=== PATIENT | male | born 1935 | race Caucasian/White ===

== ENCOUNTER 2021-01-07 22:19 | Emergency (ER) | payer MEDICARE, OTHER, SELFPAY ==
[2021-01-07 22:25] VITALS: BP 150/59; PULSE 67; RESP 18; TEMP 36.4; O2SAT 97; BMI 29.8
[2021-01-07 22:30] VITALS: BP 145/55; PULSE 61; O2SAT 95
--- NOTE | 2021-01-07 22:40 | CT_ITS ---
PROCEDURE INFORMATION: Exam: CT Head Without Contrast Exam date and time: 01/07/2021 10:40 PM Age: 85 years old Clinical indication: Injury or trauma; Fall; Blunt trauma (contusions or hematomas); Without loss of consciousness; Injury date: 01/07/2021; Injury details: Fell after blood sugar drop small laceration left top of head TECHNIQUE: Imaging protocol: Computed tomography of the head without contrast. Radiation optimization: All CT scans at this facility use at least one of these dose optimization techniques: automated exposure control; mA and/or kV adjustment per patient size (includes targeted exams where dose is matched to clinical indication); or iterative reconstruction. COMPARISON: No relevant prior studies available. FINDINGS: Brain: Age appropriate atrophy and small vessel ischemic change. No evidence of intracranial hemorrhage, mass effect, midline shift or extra-axial fluid collections. Midline structures are normal. Dennis-white matter differentiation is normal. Cerebral ventricles: No ventriculomegaly. Paranasal sinuses: Visualized sinuses are unremarkable. No fluid levels. Mastoid air cells: Visualized mastoid air cells are well aerated. Orbital cavity: The patient has had bilateral lens replacement surgery. Vasculature: Carotid and vertebral artery atherosclerotic calcification. Bones/joints: Unremarkable. No acute fracture. Soft tissues: Unremarkable. IMPRESSION: No acute intracranial injury.
--- NOTE | 2021-01-07 22:40 | XR_ITS ---
PROCEDURE INFORMATION: Exam: XR Chest Exam date and time: 01/07/2021 10:40 PM Age: 85 years old Clinical indication: Injury or trauma; Fall; Blunt trauma (contusions or hematomas); Injury date: 01/07/2021; Injury details: Fell trauma protocols; Prior surgery; Surgery date: 6+ months; Surgery type: Open heart TECHNIQUE: Imaging protocol: XR of the chest. Views: 4 or more views. COMPARISON: CT CERVICAL SPINE WO CON 01/07/2021 11:08 PM FINDINGS: Lungs: Unremarkable. No consolidation. Pleural spaces: Unremarkable. No pleural effusion. No pneumothorax. Heart/Mediastinum: There are surgical changes in the mediastinum. Cardiac silhouette is at the upper limit of normal. There is atherosclerotic calcification in the aortic arch. Bones/joints: Unremarkable. IMPRESSION: No acute cardiopulmonary abnormality. Borderline cardiomegaly.
--- NOTE | 2021-01-07 22:40 | XR_ITS ---
PROCEDURE INFORMATION: Exam: XR Pelvis Exam date and time: 01/07/2021 10:40 PM Age: 85 years old Clinical indication: Injury or trauma; Fall; Blunt trauma (contusions or hematomas); Bilateral; Pelvic region; Injury date: 01/07/2021; Injury details: Fell trauma protocol TECHNIQUE: Imaging protocol: XR pelvis. Views: 1 or 2 view. COMPARISON: No relevant prior studies available. FINDINGS: Bones/joints: Unremarkable. No acute fracture. Soft tissues: Unremarkable. IMPRESSION: No acute findings.
--- NOTE | 2021-01-07 22:40 | CT_ITS ---
PROCEDURE INFORMATION: Exam: CT Cervical Spine Without Contrast Exam date and time: 01/07/2021 10:40 PM Age: 85 years old Clinical indication: Injury or trauma; Fall; Blunt trauma; Injury date: 01/07/2021; Injury details: Fell small laceration left top of head neck pain TECHNIQUE: Imaging protocol: Computed tomography images of the cervical spine without contrast. Radiation optimization: All CT scans at this facility use at least one of these dose optimization techniques: automated exposure control; mA and/or kV adjustment per patient size (includes targeted exams where dose is matched to clinical indication); or iterative reconstruction. COMPARISON: CT HEAD/BRAIN WO CON 01/07/2021 11:03 PM FINDINGS: Vertebrae: There are moderate degenerative changes present. Normal alignment. No acute fractures. Soft tissues: Unremarkable. Lungs: Lung apices are normal. IMPRESSION: No acute injury.
--- NOTE | 2021-01-07 22:49 | HMH.EDGENADL ---
ED Disposition Clinical Impression: Hypoglycemia due to insulin Head contusion Qualifiers: Encounter type: initial encounter Contusion of head detail: scalp Qualified Code(s): S00.03XA - Contusion of scalp, initial encounter Disposition: Home, Self-Care Condition on Discharge: Good Instructions: DI for Hypoglycemia Additional Instructions: call pcp in am for follow up Referrals: Phan Thompson [Primary Care Provider] - - Critical Care Critical Care Time: No Attestation: On 01/07/21, the high probability of a clinically significant, sudden or life threatening deterioration of the following system(s) required my full and direct attention, intervention and personal management. The time I documented below is in addition to time spent performing reported procedures but includes the following listed in this critical care notation. Medical Decision Making - Medical Records Medical records reviewed: Yes: I reviewed the patient's medical records. - Jorge Inquiry Pt receiving controlled substance: No Vital Signs: 01/07/21 22:25 01/07/21 22:30 01/07/21 23:52 Temperature 97.5 F L Temperature Source Oral Pulse Rate 61 56 L Pulse Rate [Right] 67 Respiratory Rate 18 Blood Pressure 145/55 H 142/62 H Blood Pressure [Right Arm] 150/59 H Blood Pressure Mean [Right Arm] 89 Blood Pressure Source [Right Arm] Automatic Cuff Blood Pressure Position [Right Arm] Supine 02 Sat by Pulse Oximetry 97 95 99 Oxygen Delivery Method Room Air - Lab Data Lab results reviewed: Yes: I reviewed the patient's lab results. Lab Results 01/07/21 23:52: WBC 2.5 L, RBC 4.29 L, Hgb 13.0 L, Hct 38.9 L, MCV 90.6, MCH 30.2, MCHC 33.4, RDW 18.4 H, Plt Count 62 L, MPV 9.7, Neut % (Auto) 58.5, Lymph % (Auto) 32.9, [place] % (Auto) 4.2, Eos % (Auto) 1.9, Baso % (Auto) 2.5 H, Neut # (Auto) 1.5 L, Lymph # (Auto) 0.8, [place] # (Auto) 0.1, Eos # (Auto) 0.1, Baso # (Auto) 0.1, ESR 19 01/07/21 23:52: Sodium 142, Potassium 3.9, Chloride 103, Carbon Dioxide 32 H, Anion Gap 10.9, BUN 19, Creatinine 1.10, Estimated Creat Clear 69, Estimated GFR 64, Est GFR ( Amer) 77, Glucose 82, Calcium 8.5, Total Bilirubin 0.7, AST 21, ALT 13, Alkaline Phosphatase 69, C-Reactive Protein 0.8, Total Protein 6.5, Albumin 3.8, Globulin 2.7, Albumin/Globulin Ratio 1.4, Procalcitonin 0.111 Result diagrams: 01/07/21 23:52 01/07/21 23:52 Orders (Tests/Meds): ED MEDICATIONS Generic Name Dose Route Start Last Admin Trade Name Freq PRN Reason Stop Dose Admin Sodium Chloride 1,000 mls @ 999 mls/hr 01/07/21 22:45 01/07/21 23:26 Sod Chlor 0.9% 1000ml Bag IV 01/07/21 23:45 999 mls/hr .Q1H1M EDIE Administration - Radiology Data #1 Image(s): Chest, Pelvis Image Reviewed: Yes I have reviewed radiologist's interpretation Preliminary Findings: No Fracture Seen - CT Data CT Scan: Head, C-Spine Time Received: 01:[address] Reviewed: Yes: I have viewed the radiologist's interpretation Preliminary Findings: No Fracture Seen Medical Decision Narrative: iddm with acute hypoglycemic episode and stable exam and labs and xrays General Adult HPI - General Chief complaint: Hyper/Hypoglycemia Stated complaint: low BS Time Seen by Provider: 01/07/21 22:35 Mode of Arrival: EMS Source of Information: Patient, EMS, Medical Record Limitations: No Limitations Description of Symptoms (Recalled from ER Triage Doc. by RN): Family reports they heard a loud bang and then found pt on the floor and non-verbal, family checked FSBS and it read 60, EMS arrived and checked FSBS after IV established and found it to be in the 30's. EMS gave 1 AMP of D50 and pt started waking up. On Arrival pt had shallow laceration to left side of head with no bleeding. Pt is AA&O x 3 on arrival. PERRL 3mm. pt moves all ext. Arrival FSBS 197. - History of Present Illness HPI narrative: acute altered mental status - hit head and had dec glu - responded to glucose - uses insu
[2021-01-07 23:52] VITALS: BP 142/62; PULSE 56; O2SAT 99
[2021-01-07 23:58] LABS: Basophils # 0.1 K/mm3 (0-0.2); Basophils % 2.5 % (0.1-2.0); Eosinophils # 0.1 K/mm3 (0.0-0.4); Eosinophils % 1.9 % (0.1-12.0); Hematocrit 38.9 % (42.0-52.0); Lymphocytes # 0.8 K/mm3 (0.7-4.5); Lymphocytes % 32.9 % (10-50); Mean Corpuscular HGB Conc 33.4 g/dL (31.8-35.4); Mean Corpuscular Hemoglobin 30.2 pg (27.0-31.2); Mean Corpuscular Volume 90.6 fl (80-94); Mean Platelet Volume 9.7 fl (7.4-10.4); Monocytes # 0.1 K/mm3 (0.1-1.0); Monocytes % 4.2 % (1.7-9.3); Neutrophils # 1.5 K/mm3 (1.8-7.8); Neutrophils % 58.5 % (37.0-80.0); Platelet Count 62 K/mm3 (142-424); Red Blood Count 4.29 M/mm3 (4.60-6.20); Red Cell Distribution Width 18.4 % (11.5-17.5); White Blood Count 2.5 K/mm3 (4.8-10.8)
[2021-01-08 00:08] LABS: Alanine Aminotransferase 13 U/L (12-78); Albumin Level 3.8 g/dl (3.5-5.0); Albumin/Globulin Ratio 1.4 (1.1-1.8); Alkaline Phosphatase 69 U/L (38-126); Anion Gap 10.9 mEq/L (5-15); Aspartate Amino Transferase 21 U/L (17-59); Bilirubin,Total 0.7 mg/dl (0.2-1.3); Blood Urea Nitrogen 19 mg/dl (9-20); Calcium 8.5 mg/dl (8.4-10.2); Carbon Dioxide 32 mmol/L (22.0-30.0); Chloride 103 mmol/L (98-107); Creatinine Clearance Estimated 69 mL/min (50-200); Estimated Glomerular Filt Rate 64 ml/min (>60); GFR (African American) 77 ML/MIN (>60); Globulin 2.7 g/dL (1.3-3.2); Glucose 82 mg/dl (74-100); Potassium 3.9 mmoL/L (3.5-5.1); Sodium 142 mmol/L (136-145); Total Protein,Serum 6.5 g/dl (6.3-8.2)
[2021-01-08 00:13] LABS: C-Reactive Protein 0.8 mg/L (0-4)
[2021-01-08 00:21] LABS: Erythrocyte Sedimentation Rate 19 mm/hr (0-20)
[2021-01-08 00:27] LABS: Procalcitonin 0.111 ng/mL (0.0-2.0)
[2021-01-08 01:10] VITALS: BP 141/60; PULSE 56; RESP 18; TEMP 36.4; O2SAT 97
== END 2021-01-08 01:12 | disposition home or self-care (01) ==
PROVIDERS: Emergency Provider Emergency Medicine; PCP Internal Medicine
DX: E11.649 Type 2 diabetes mellitus with hypoglycemia without coma (principal); S00.03XA Contusion of scalp, initial encounter; W01.0XXA Fall on same level from slipping, tripping and stumbling without subsequent striking against object, initial encounter; Y92.019 Unspecified place in single-family (private) house as the place of occurrence of the external cause
CPT/HCPCS: 70450; 71045; 72125; 72170; 80053; 84145; 85025; 85651; 86140; 96365; 99282

== ENCOUNTER 2021-01-14 14:01 | Inpatient (IN) | payer MEDICARE, OTHER, SELFPAY ==
[2021-01-14 14:03] VITALS: BP 138/55; PULSE 77; RESP 22; TEMP 37.3; O2SAT 92; BMI 24.4
--- NOTE | 2021-01-14 14:40 | XR_ITS ---
PROCEDURE INFORMATION: Exam: XR Chest Exam date and time: 01/14/2021 2:40 PM Age: 85 years old Clinical indication: Fever; Additional info: Covid exposure, fever, disorientation TECHNIQUE: Imaging protocol: XR of the chest. Views: 1 view. COMPARISON: CR XR CHEST AP 01/07/2021 11:17 PM FINDINGS: Tubes, catheters and devices: There are sternal wires consistent with previous sternotomy incision. Lungs: Atelectasis and/or early infiltrative changes noted within both lung bases. Pleural spaces: There is no evidence of pneumothorax. Heart/Mediastinum: The heart demonstrates mild diffuse enlargement. Vasculature: The vasculature demonstrates diffuse mild atherosclerotic calcification. Bones/joints: The thoracic spine demonstrates mild degenerative changes at multiple levels. Other findings: The patient's chin overlies the lung apices. IMPRESSION: 1. The heart demonstrates mild diffuse enlargement. 2. Atelectasis and/or early infiltrative changes noted within both lung bases.
[2021-01-14 14:46] LABS: Coronavirus 19, PCR Not Detected (NotDetected); Influenza A, PCR Not Detected (NotDetected); Influenza B, PCR Not Detected (NotDetected)
[2021-01-14 15:01] LABS: Basophils # 0.4 K/mm3 (0-0.2); Basophils % 4.9 % (0.1-2.0); Eosinophils # 0.1 K/mm3 (0.0-0.4); Eosinophils % 0.7 % (0.1-12.0); Hematocrit 34.5 % (42.0-52.0); Hemoglobin 11.6 g/dL (14.1-18.0); Lymphocytes # 1.3 K/mm3 (0.7-4.5); Lymphocytes % 15.6 % (10-50); Mean Corpuscular HGB Conc 33.7 g/dL (31.8-35.4); Mean Corpuscular Hemoglobin 29.7 pg (27.0-31.2); Mean Corpuscular Volume 88.2 fl (80-94); Mean Platelet Volume 10.6 fl (7.4-10.4); Monocytes # 1.6 K/mm3 (0.1-1.0); Monocytes % 19.9 % (1.7-9.3); Neutrophils # 5.1 K/mm3 (1.8-7.8); Neutrophils % 63.8 % (37.0-80.0); Platelet Count 66 K/mm3 (142-424); Red Blood Count 3.91 M/mm3 (4.60-6.20); Red Cell Distribution Width 18.6 % (11.5-17.5)
[2021-01-14 15:07] LABS: Alanine Aminotransferase 29 U/L (12-78); Albumin Level 3.6 g/dl (3.5-5.0); Albumin/Globulin Ratio 1.2 (1.1-1.8); Alkaline Phosphatase 73 U/L (38-126); Anion Gap 15.7 mEq/L (5-15); Aspartate Amino Transferase 32 U/L (17-59); Bilirubin,Total 1.3 mg/dl (0.2-1.3); Blood Urea Nitrogen 42 mg/dl (9-20); Calcium 8.8 mg/dl (8.4-10.2); Carbon Dioxide 27 mmol/L (22.0-30.0); Chloride 94 mmol/L (98-107); Creatinine Clearance Estimated 42 mL/min (50-200); Estimated Glomerular Filt Rate 44 ml/min (>60); GFR (African American) 54 ML/MIN (>60); Globulin 2.9 g/dL (1.3-3.2); Glucose 209 mg/dl (74-100); Potassium 3.7 mmoL/L (3.5-5.1); Sodium 133 mmol/L (136-145); Total Protein,Serum 6.5 g/dl (6.3-8.2)
[2021-01-14 15:09] LABS: Lactic Acid 3.2 mmol/L (0.7-2.1)
[2021-01-14 15:10] LABS: Microscopic, Urine URINE MICROSCOPIC (MICROSCOPIC)
[2021-01-14 15:14] LABS: Appearance,Urine CLEAR (Clear); Bilirubin,Urine Negative (Negative); Blood, Urine 1+ (Negative); Color,Urine YELLOW (Yellow); Glucose,Urine (UA) 1+ (Negative); Ketones,Urine Negative (Negative); Leukocyte Esterase,Urine Negative (Negative); Nitrate,Urine Negative (Negative); PH,Urine 5.5 (5.0-8.5); Protein,Urine TRACE (Negative); Specific Gravity, Urine >= 1.030 (1.005-1.030)
[2021-01-14 15:27] LABS: Squamous Epithelial Cell,Urine Occasional #/hpf (0-5)
[2021-01-14 15:28] LABS: Amorphous Sediment,Urine Trace /lpf
--- NOTE | 2021-01-14 16:47 | HMH.EDGENADL ---
ED Disposition Clinical Impression: Elevated troponin, Dehydration Community acquired pneumonia Qualifiers: Laterality: unspecified laterality Qualified Code(s): J18.9 - Pneumonia, unspecified organism Disposition: Admitted as Observation Condition on Discharge: Fair Referrals: Phan Thompson [Primary Care Provider] - Forms: Transfer Record - ED - Critical Care Critical Care Time: No Attestation: On 01/14/21, the high probability of a clinically significant, sudden or life threatening deterioration of the following system(s) required my full and direct attention, intervention and personal management. The time I documented below is in addition to time spent performing reported procedures but includes the following listed in this critical care notation. Medical Decision Making - Jorge Inquiry Pt receiving controlled substance: No Vital Signs: 01/14/21 14:03 Temperature 99.1 F Temperature Source Oral Pulse Rate [Right Radial] 77 Respiratory Rate 22 Blood Pressure [Right Arm] 138/55 L Blood Pressure Mean [Right Arm] 82 Blood Pressure Source [Right Arm] Automatic Cuff Blood Pressure Position [Right Arm] Sitting 02 Sat by Pulse Oximetry 92 L Oxygen Delivery Method Room Air - Lab Data Lab Results 01/14/21 14:15: SARS-CoV-2 (PCR) Not detected, Influenza A Untype (PCR) Not detected, Influenza Type B (PCR) Not detected 01/14/21 14:45: WBC 8.0, RBC 3.91 L, Hgb 11.6 L, Hct 34.5 L, MCV 88.2, MCH 29.7, MCHC 33.7, RDW 18.6 H, Plt Count 66 L, MPV 10.6 H, Neut % (Auto) 63.8, Lymph % (Auto) 15.6, [place] % (Auto) 19.9 H, Eos % (Auto) 0.7, Baso % (Auto) 4.9 H, Neut # (Auto) 5.1, Lymph # (Auto) 1.3, [place] # (Auto) 1.6 H, Eos # (Auto) 0.1, Baso # (Auto) 0.4 H 01/14/21 14:45: Sodium 133 L, Potassium 3.7, Chloride 94 L, Carbon Dioxide 27, Anion Gap 15.7 H, BUN 42 H, Creatinine 1.50 H, Estimated Creat Clear 42, Estimated GFR 44 L, Est GFR ( Amer) 54 L, Glucose 209 H, Calcium 8.8, Total Bilirubin 1.3, AST 32, ALT 29, Alkaline Phosphatase 73, Total Protein 6.5, Albumin 3.6, Globulin 2.9, Albumin/Globulin Ratio 1.2 01/14/21 14:45: Lactate 3.2 H 01/14/21 14:45: NT-Pro-B Natriuret Pep 4880 H 01/14/21 14:45: Lipase 18 L 01/14/21 15:04: Urine Color Yellow, Urine Appearance Clear, Urine pH 5.5, Ur Specific [place] >= 1.030, Urine Protein Trace, Urine Glucose (UA) 1+, Urine Ketones Negative, Urine Blood 1+, Urine Nitrate Negative, Urine Bilirubin Negative, Urine Urobilinogen 1.0, Ur Leukocyte Esterase Negative, Urine RBC 3-5, Urine WBC None, Ur Squamous Epith Cells Occasional, Amorphous Sediment Trace, Urine Bacteria None 01/14/21 17:50: Troponin I 0.22 H 01/14/21 17:57: POC Glucose 220 H Result diagrams: 01/14/21 14:45 01/14/21 14:45 Orders (Tests/Meds): ED MEDICATIONS Generic Name Dose Route Start Last Admin Trade Name Freq PRN Reason Stop Dose Admin Sodium Chloride 1,000 mls @ 100 mls/hr 01/14/21 17:45 01/14/21 18:03 Sod Chlor 0.9% 1000ml Bag IV 02/13/21 17:44 100 mls/hr .Q10H EDIE Administration Discontinued Medications Generic Name Dose Route Start Last Admin Trade Name Freq PRN Reason Stop Dose Admin Aspirin 324 mg 01/14/21 18:56 Aspirin 81mg Chewable Tablet PO 01/14/21 18:57 ONCE ONE Iopamidol 75 ml 01/14/21 19:26 01/14/21 19:27 Iopamidol-370 (76%);100ml Bottle IV 01/14/21 19:27 75 ml ONCE ONE Administration Ondansetron HCl 4 mg 01/14/21 17:32 01/14/21 18:03 Ondansetron 4mg/2ml Vial IV 01/14/21 17:33 4 mg ONCE ONE Administration Sodium Chloride 10 ml 01/14/21 19:26 01/14/21 19:27 Sodium Chloride 0.9% 10ml Syr (Rad Only) IV 01/14/21 19:27 10 ml ONCE ONE Administration ORDERS Category Date Time Status Lactic Acid Follow Up (RFLX 1) Stat Lab 01/14/21 18:58 Ordered Troponin I Q3H Lab 01/14/21 20:15 Received Troponin I Q3H Lab 01/14/21 23:45 Ordered Blood Culture Stat Micro 01/14/21 14:45 Ordered - Radiology Data #1 Image(s): Chest
--- NOTE | 2021-01-14 17:30 | CT_ITS ---
PROCEDURE INFORMATION: Exam: CT Abdomen And Pelvis With Contrast Exam date and time: 01/14/2021 5:30 PM Age: 85 years old Clinical indication: Nausea and vomiting and other: Diarrhea; Patient HX: Nausea, vomiting, diarrhea for 48 hours with generalized abdominal pain. TECHNIQUE: Imaging protocol: Computed tomography of the abdomen and pelvis with contrast. Radiation optimization: All CT scans at this facility use at least one of these dose optimization techniques: automated exposure control; mA and/or kV adjustment per patient size (includes targeted exams where dose is matched to clinical indication); or iterative reconstruction. Contrast material: ISOVUE; Contrast volume: 75 ml; Contrast route: IV; COMPARISON: CR XR PELVIS 1-2V 01/07/2021 11:15 PM FINDINGS: Heart: The heart demonstrates mild diffuse enlargement. Liver: Normal. No mass. Gallbladder and bile ducts: Cholelithiasis without evidence of cholecystitis. Pancreas: Normal. No ductal dilation. Spleen: The spleen demonstrates punctate calcifications, consistent with remote granulomatous organism exposure. Adrenal glands: Mild thickening of both adrenal glands. Kidneys and ureters: Nonspecific low-density foci of the kidneys statistically favor benign cysts, no further follow-up needed, as large as 3.7 cm on the left. Punctate nonobstructing calcifications present within both kidneys, greater on the right. Stomach and bowel: A large amount of stool is noted throughout the colon. Mild thickening of the garcia of the stomach consistent with mild gastritis. Appendix: Appendix is not well seen. Intraperitoneal space: Normal. No significant fluid collection. Vasculature: The vasculature demonstrates diffuse mild atherosclerotic calcification. Lymph nodes: Unremarkable. No enlarged lymph nodes. Urinary bladder: Holden catheter, air and balloon present within the bladder. Reproductive: The prostate demonstrates mild nonspecific enlargement. The seminal vesicles are normal. Bones/joints: The lumbar spine demonstrates mild degenerative changes at multiple levels. Soft tissues: Soft tissues are normal. IMPRESSION: 1. The heart demonstrates mild diffuse enlargement. 2. A large amount of stool is noted throughout the colon. 3. Mild thickening of the garcia of the stomach consistent with mild gastritis. 4. Cholelithiasis without evidence of cholecystitis. 5. Punctate nonobstructing calcifications present within both kidneys, greater on the right.
--- NOTE | 2021-01-14 17:31 | ECG_ITS ---
APPROVED REPORT Exam: Resting ECG HR:78 bpm ECG Measurements Heart Rate 78 AXES VT 176 P QRSd 98 QRS 48 QT 300 T -84 QTc 342 Conclusion Sinus rhythm with frequent premature ventricular complexes and premature atrial complexes Incomplete right bundle branch block ST & T wave abnormality, consider inferior ischemia ST & T wave abnormality, consider anterolateral ischemia Abnormal ECG Electronically signed by : Maynor Reynolds MD 01/16/2021 12:09:52
[2021-01-14 18:05] LABS: POC Glucose,Bedside 220 (70-110)
[2021-01-14 18:37] LABS: Troponin I 0.22 ng/ml (0.00-0.034)
[2021-01-14 18:58] LABS: Reflex Lactic Add Lactic Reflex
[2021-01-14 19:24] LABS: Lipase 18 U/L (23-300)
[2021-01-14 19:33] LABS: NT Pro Brain Natriuretic Pep. 4880 pg/mL (0-450)
[2021-01-14 20:00] VITALS: BP 127/50; PULSE 79; RESP 20; O2SAT 93
[2021-01-14 21:01] VITALS: BP 125/31; PULSE 75; O2SAT 95
[2021-01-14 21:14] LABS: Troponin I 0.27 ng/ml (0.00-0.034)
--- NOTE | 2021-01-14 21:15 | PC.NURSE ---
Seth notified of critical lab Trop 0.27
[2021-01-14 21:30] LABS: Lactic Acid Follow Up (RFLX 1) 3.3 mmol/L (0.7-2.1)
[2021-01-14 22:00] VITALS: BP 125/99; PULSE 67; O2SAT 96
--- NOTE | 2021-01-14 22:07 | PC.NURSE ---
EXPLAINED TO PATIENT THAT HE WAS GOING TO BE ADMITTED. INFORMED HIM AND HIS VISITOR THAT WE CURRENTLY DON'T HAVE ANY BEDS AND THAT HE WOULD BOARD IN OUR ED UNTIL A BED BECOMES AVAILABLE IN THE AM. INFORMED HIM THAT ONCE THE ED CLEARED OUT AND MORE COMFORTABLE STRETCHERS BECOME AVAILABLE WE WOULD MOVE HIM INTO ONE. PATIENT AND VISITOR VERBALIZED UNDERSTANDING.
[2021-01-14 23:09] LABS: Reflex Lactic (2 hrs) Add Lactic Reflex
--- NOTE | 2021-01-14 23:16 | PC.NURSE ---
Addendum entered by Vikas Rankin RN 01/15/21 00:37: Pt had also removed his IV. Will attempt new iv access. Original Note: Holden removed to prevent injury d/t pt continuously trying to remove it himself.
[2021-01-14 23:30] VITALS: BP 127/40; PULSE 102; O2SAT 92
[2021-01-15] VITALS (7 sets, daily range): BP systolic 90–147; BP diastolic 51–71; PULSE 76–116; RESP 18–20; TEMP 36.8–37.2; O2SAT 91–98; BMI 24.5
[2021-01-15 00:39] LABS: Lactic Acid Follow up (RFLX 2) 3.6 mmol/L (0.7-2.1)
[2021-01-15 00:49] LABS: Troponin I 0.23 ng/ml (0.00-0.034)
--- NOTE | 2021-01-15 01:04 | PC.NURSE ---
Pt ambulated to BR with stand by assist. 1 unmeasured void. Pt given pitcher of water. 220ml intake. Pt says he is doing just fine.
--- NOTE | 2021-01-15 03:49 | PC.NURSE ---
Pt removed IV again.
--- NOTE | 2021-01-15 03:58 | PC.NURSE ---
ORDER FOR AZITHROMYCIN CHANGED TO PO FOR THIS ADMINISTRATION DUE TO DIFFICULTIES MAINTAINING IV LINE. PT EXHIBITING SIGNS OF SUNDOWNING, WITH INTERMITTENT PERIODS OF LUCIDITY.
--- NOTE | 2021-01-15 08:00 | PC.NURSE ---
diabetic breakfast tray ordered for patient
--- NOTE | 2021-01-15 08:15 | PC.NURSE ---
breakfast delivered to patient
--- NOTE | 2021-01-15 08:30 | PC.NURSE ---
patient using bedside commode at this time.
[2021-01-15 10:54] LABS: Glucose,Random 676 mg/dL (74-100)
[2021-01-15 11:01] LABS: Glucose 676 mg/dl (74-100)
[2021-01-15 11:08] LABS: Anion Gap 30.1 mEq/L (5-15); Blood Urea Nitrogen 45 mg/dl (9-20); Calcium 8.5 mg/dl (8.4-10.2); Carbon Dioxide 15 mmol/L (22.0-30.0); Chloride 88 mmol/L (98-107); Creatinine Clearance Estimated 37 mL/min (50-200); Estimated Glomerular Filt Rate 38 ml/min (>60); GFR (African American) 47 ML/MIN (>60); Potassium 4.1 mmoL/L (3.5-5.1); Sodium 129 mmol/L (136-145)
--- NOTE | 2021-01-15 11:16 | PC.NURSE ---
Eleuterio Peters due to patient's elevated glucose and urinary retention
--- NOTE | 2021-01-15 11:22 | PC.NURSE ---
Dr. Peters verbally ordered to Ramiro THOMAS to get patient's normal home insulin dose and to start another marquez catheter
--- NOTE | 2021-01-15 11:30 | PC.NURSE ---
Spoke with Brissa in who is checking into pt VA insurance and VA bed status. Will continue to monitor
--- NOTE | 2021-01-15 11:49 | HMH.HP ---
*Admission Date: 01/14/21 <Peace Garduno - 01/15/21 11:55> *Chief complaint: Abdominal pain; altered mental status <Peace Garduno - 01/15/21 13:45> *History of present illness: Mr. Barbosa is an 85-year-old male patient with a history of type 2 diabetes mellitus who had nausea and vomiting last week which resolved and then returned. His family with whom he lives noticed a change in mental status and thus they brought him to the emergency room. At the time of this visit patient is alone in the ER awaiting a bed and is a very poor historian. Below is documentation from the emergency room.: Description of Symptoms (Recalled from ER Triage Doc. by RN): Nusratantonia (GEE) states that pt had his Moderna booster on Friday. Nusratter advises that on Friday pt began vomiting and running a fever of 101.5 and yesterday he appeared to feel better. States that today he began vomiting again, O2 was low, temp was elevated, pt has been disoriented and having incontinent episodes, and glucose has been running at high levels. Granddaughter advises that pt lives with her and her family and that pt's 6 yr old bethanie farrar tested positive for COVID on Friday. HPI narrative: History obtained from patient and granddaughter who lives with the patient. He received a maternal booster vaccine 4 days ago. 2 days after that began having fevers up to 101 degrees. Generalized body aches. Nausea and vomiting. Granddaughter says the thing he seems to complain of the most is his abdomen. He describes a generalized discomfort. Fever resolved and he was afebrile yesterday and today. Other symptoms have persisted however. Granddaughter called Dr. Mckinney who advised him to come to the emergency department if he began to get dehydrated or if his oxygen saturation was in the 80s or if his vomiting would not resolve. Patient's oxygen saturation dropped to the mid 80s today. He does not feel short of breath. He does not have any cough, other than his normal intermittent throat clearing hack. His daughter also states that he is disoriented today. He has urinary frequency and has had trouble making it to the bathroom in time. No diarrhea. He complains of a sore throat today. The patient sees Dr. Thompson as well as going to the [facility]. The above narrative is from [facility] ER. While residing in the emergency room patient pulled his IV out several times. He also was pulling at his catheter and this was removed and then replaced due to urinary retention. At the time of this exam patient denies chest pain, shortness of breath, abdominal pain, nausea and vomiting. He states he has had an accident and bowels have moved and he needs to be cleaned. In the emergency room he received IV fluids, aspirin, and Zofran. CT of the abdomen/pelvis showed a large amount of stool and possible mild gastritis. Chest x-ray showed a possible pneumonia: IMPRESSION: 1. The heart demonstrates mild diffuse enlargement. 2. Atelectasis and/or early infiltrative changes noted within both lung bases. . He was admitted for further evaluation and treatment and awaits in the emergency room for a bed assignment. Family prefers that he remain here for his care rather than going to the [facility]. I had a conference call with Ronald Ramirez ,the granddaughter, and Connie Ziegler, his . They state that he has a history of atrial fibrillation and is on Eliquis for this. He has also being diagnosed with prostate cancer which he was told it was a slow process and therefore he has not had treatment for this. He also has a history of anemia and takes iron on an irregular basis due to constipation. He has had CABG with three-vessel bypass. He is on Paxil for depression. Stomach krueger, he does belch a lot but usually eats very well. As far as they know his bowels move regularly and there has been no blood noted. He does stagger some but ambulates usually without difficulty. <Peace Garduno - 01/15/21 14:41> H
--- NOTE | 2021-01-15 12:08 | HMH.PHAINT ---
MEDICATION RECONCILIATION COMPLETED USING LIST FROM [facility].
--- NOTE | 2021-01-15 12:31 | PC.NURSE ---
Gave report to Annie THOMAS
[2021-01-15 16:24] LABS: Glucose,Random 540 mg/dL (74-100)
--- NOTE | 2021-01-15 17:07 | HMH.PHAVTE ---
[facility] Pharmacy VTE Monitoring - Patient Demographics Admission date: 01/14/21 Report Date: 01/15/21 Time: 17:07 Allergies/Adverse Reactions: Patient Allergies clonidine Allergy (Verified 01/15/21 08:34) Unknown allergy reaction fosinopril Allergy (Verified 01/15/21 08:34) Unknown allergy reaction hydralazine Allergy (Verified 01/15/21 08:34) Unknown allergy reaction lisinopril Allergy (Verified 01/15/21 08:34) Unknown allergy reaction morphine Adverse Reaction (Unknown, Verified 01/15/21 08:34) Blurry Vision Height: 1.83 m Weight: 82 kg Patient Problems: Current Active Problems Hypoglycemia due to insulin (Acute) Elevated troponin (Acute) Community acquired pneumonia (Acute) Dehydration (Acute) Altered mental status (Acute) Diabetes mellitus (Chronic) Heart disease (Chronic) Renal insufficiency (Acute) Atrial fibrillation (Chronic) Cardiomyopathy (Chronic) Anemia (Chronic) Depression (Chronic) Prostate cancer (Chronic) - VTE Risk Labs: VTE Related Lab Results Hgb 11.6 g/dL (14.1-18.0) L 01/14/21 14:45 Hct 34.5 % (42.0-52.0) L 01/14/21 14:45 Plt Count 66 K/mm3 (142-424) L 01/14/21 14:45 BUN 45 mg/dl (9-20) H 01/15/21 10:05 Creatinine 1.70 mg/dl (0.66-1.25) H 01/15/21 10:05 Estimated Creat Clear 37 mL/min (50-200) 01/15/21 10:05 Was VTE Risk Assessment Performed: Yes - Prophylaxis VTE Prophylaxis Ordered?: Yes Types of VTE Prophylaxis: TEDS Knee High, Pharmacological Location of Applied Device: Bilateral Lower Extremeties Pharmacologic Type: Other (ELIQUIS)
--- NOTE | 2021-01-15 17:55 | PC.NURSE ---
Pt has been sleeping since arriving to the floor. He will awaken to voice but goes back to sleep quickly. Glucose has been elevated. MD aware and insulin given per MD order. Bloody drainage noted to groin. ER said pt had pulled Holden and pt takes a blood thinner (eliquis). New one had been placed before coming to the floor. He is currently resting in bed w/his eyes closed at this time.
[2021-01-15 21:20] LABS: POC Glucose,Bedside 317 (70-110)
[2021-01-16] VITALS (7 sets, daily range): BP systolic 109–117; BP diastolic 45–69; PULSE 70–120; RESP 20–24; TEMP 36.4–36.9; O2SAT 91–98; BMI 29.3
[2021-01-16 07:56] LABS: POC Glucose,Bedside 112 (70-110)
[2021-01-16 08:07] LABS: Basophils # 0.5 K/mm3 (0-0.2); Basophils % 5.3 % (0.1-2.0); Eosinophils % 0.3 % (0.1-12.0); Hematocrit 29.9 % (42.0-52.0); Hemoglobin 10.2 g/dL (14.1-18.0); Lymphocytes # 1.7 K/mm3 (0.7-4.5); Lymphocytes % 17.1 % (10-50); Mean Corpuscular HGB Conc 34.2 g/dL (31.8-35.4); Mean Corpuscular Volume 87.6 fl (80-94); Monocytes # 2.1 K/mm3 (0.1-1.0); Monocytes % 21.5 % (1.7-9.3); Neutrophils # 5.9 K/mm3 (1.8-7.8); Platelet Count 61 K/mm3 (142-424); Red Blood Count 3.42 M/mm3 (4.60-6.20); Red Cell Distribution Width 18.9 % (11.5-17.5); White Blood Count 9.7 K/mm3 (4.8-10.8)
[2021-01-16 08:09] LABS: MANUAL DIFFERENTIAL MANUAL DIFFERENTIAL (MANUAL DIFF)
--- NOTE | 2021-01-16 08:21 | HMH.ACPN2 ---
<Peace Garduno - Last Filed: 01/16/21 10:02> Internal Medicine - PN: Subj *Date: 01/16/21 *Time: 10:02 Interval history: Patient states he is not feeling very well. He did not eat any breakfast and does not feel like eating. He cannot tell me what is wrong. He denies chest pain and shortness of air. He sleeps whenever left alone. He is having a congested cough without sputum production Blood sugars have been elevated with a high of 676. This morning blood sugar is 112. He remains on insulin along with sliding scale. Sodium is 3.4. Renal function show a BUN of 71 and creatinine of 2.2. Exam Vital signs and Labs for Last 24 Hours: Temp Pulse Resp BP Pulse Ox 97.9 F 79 24 112/57 L 93 L 01/16/21 04:00 01/16/21 06:08 01/16/21 04:00 01/16/21 04:00 01/16/21 06:08 Laboratory Results - last 24 hr 01/15/21 10:05: Random Glucose 676 H* 01/15/21 10:05: Sodium 129 L, Potassium 4.1, Chloride 88 L, Carbon Dioxide 15 L, Anion Gap 30.1 H, BUN 45 H, Creatinine 1.70 H, Estimated Creat Clear 37, Estimated GFR 38 L, Est GFR ( Amer) 47 L, Glucose 676 H* D, Calcium 8.5 01/15/21 16:01: Random Glucose 540 H* 01/15/21 21:06: POC Glucose 317 H* 01/16/21 06:53: POC Glucose 112 H 01/16/21 07:51: WBC 9.7, RBC 3.42 L, Hgb 10.2 L, Hct 29.9 L, MCV 87.6, MCH 30.0, MCHC 34.2, RDW 18.9 H, Plt Count 61 L, MPV 10.0, Neut % (Auto) 61.0, Lymph % (Auto) 17.1, Leon % (Auto) 21.5 H, Eos % (Auto) 0.3, Baso % (Auto) 5.3 H, Neut # (Auto) 5.9, Lymph # (Auto) 1.7, Leon # (Auto) 2.1 H, Eos # (Auto) 0.0, Baso # (Auto) 0.5 H I & O for Last 24 hours: Intake & Output 01/13/21 01/14/21 01/15/21 01/16/21 11:59 11:59 11:59 11:59 Intake Total 0 / 0 Output Total 600 / 600 650 / 650 Balance -600 / -600 -650 / -650 Weight 180 lb 216 lb 12.8 oz - Constitutional no acute distress Comments: Sleeps whenever left alone - *Routine Respiratory Exam Present: rhonchi (Throughout and sounds mostly upper airway) - *Routine Cardiovascular Exam Present: RRR - *Routine Abdominal Exam Present: soft, normoactive bowel sounds, other (Scaphoid). Absent: tenderness - *Routine Extremities Exam Absent: edema, calf tenderness - *Routine Neurological Exam Present: alert (When awakened) Speech is more clear today although very soft. Assessment and Plan (1) Altered mental status Status: Acute Category: Medical Code(s): R41.82 - Altered mental status, unspecified (2) Community acquired pneumonia Status: Acute Qualifiers: Laterality: unspecified laterality Qualified Code(s): J18.9 - Pneumonia, unspecified organism Category: Medical Code(s): J18.9 - Pneumonia, unspecified organism (3) Dehydration Status: Acute Category: Medical Code(s): E86.0 - Dehydration (4) Elevated troponin Status: Acute Category: Medical Code(s): R77.8 - Other specified abnormalities of plasma proteins (5) Diabetes mellitus Status: Chronic Category: Medical Code(s): E11.9 - Type 2 diabetes mellitus without complications (6) Heart disease Status: Chronic Category: Medical Code(s): I51.9 - Heart disease, unspecified (7) Renal insufficiency Status: Acute Category: Medical Code(s): N28.9 - Disorder of kidney and ureter, unspecified (8) Atrial fibrillation Status: Chronic Category: Medical Code(s): I48.91 - Unspecified atrial fibrillation (9) Cardiomyopathy Status: Chronic Category: Medical Code(s): I42.9 - Cardiomyopathy, unspecified (10) Anemia Status: Chronic Category: Medical Code(s): D64.9 - Anemia, unspecified (11) Depression Status: Chronic Category: Medical Code(s): F32.9 - Major depressive disorder, single episode, unspecified (12) Prostate cancer Status: Chronic Category: Medical Code(s): C61 - Malignant neoplasm of prostate (13) Gross hematuria Status: Acute Category: Medical Code(s): R31.0 - Gross hematuria - Assessment and plan all Dx
[2021-01-16 08:24] LABS: Chloride 100 mmol/L (98-107)
[2021-01-16 08:25] LABS: Potassium 3.4 mmoL/L (3.5-5.1); Sodium 133 mmol/L (136-145)
[2021-01-16 08:26] LABS: Acanthocytes 1+; Lymphocytes % 19 % (10-50); Monocytes % 29 % (2-9); Neutrophils % 49 % (42-76); Nucleated Red Blood Cells 1; Platelet Estimate Moderate Decrease; Poikilocytosis 1+; Total Cells Counted 100
[2021-01-16 08:27] LABS: Alanine Aminotransferase 83 U/L (12-78); Alkaline Phosphatase 68 U/L (38-126); Anion Gap 14.4 mEq/L (5-15); Aspartate Amino Transferase 212 U/L (17-59); Bilirubin,Total 1.2 mg/dl (0.2-1.3); Blood Urea Nitrogen 71 mg/dl (9-20); Carbon Dioxide 22 mmol/L (22.0-30.0); Creatinine Clearance Estimated 34 mL/min (50-200); Estimated Glomerular Filt Rate 29 ml/min (>60); GFR (African American) 35 ML/MIN (>60)
[2021-01-16 08:28] LABS: Albumin Level 2.9 g/dl (3.5-5.0); Albumin/Globulin Ratio 1.2 (1.1-1.8); Calcium 8.1 mg/dl (8.4-10.2); Globulin 2.5 g/dL (1.3-3.2); Glucose 99 mg/dl (74-100); Total Protein,Serum 5.4 g/dl (6.3-8.2)
--- NOTE | 2021-01-16 09:10 | PC.NURSE ---
Late entry: Pt. able to state name, ; unable to state year or place. Able to follow commands and state basic needs. FC continues to drain small clots and hematuria. No n/v/d, dizziness or soa this shift.
--- NOTE | 2021-01-16 10:55 | XR_ITS ---
PROCEDURE: XR CHEST PORTABLE CLINICAL HISTORY: chest congestion COMPARISON: CR XR CHEST AP from 01/07/[address] ABDOMEN PELVIS W CON from 01/14/2021 CR XR CHEST PORTABLE from 01/14/2021 FINDINGS: There is cardiomegaly with pulmonary venous congestion suggesting mild CHF. There has been a prior CABG. No lobar consolidation or collapse. No acute bony abnormalities. IMPRESSION: Mild CHF Dictated by: Iker Quintero MD 01/16/2021 12:06 Iker Quintero MD in [facility] 01/16/2021 12:06
[2021-01-16 11:15] LABS: POC Glucose,Bedside 119 (70-110)
--- NOTE | 2021-01-16 12:04 | DIET.NUTRFU ---
Nutritional consult received, assessment, IP completed. Pt with severe AMS, unable to tolerate PO at this time. Moderate soft modifications made for ease of eating and glucerna TID added to diet order. Please encourage/cue at meal times and prioritize supplements. Will complete full malnutrition assessment and provide diet edu/counseling as mentation improves.
--- NOTE | 2021-01-16 18:34 | PC.NURSE ---
Pt has been increasingly confused this shift, he has remained only oriented to self. Pt has pulled out multiple PIV's. Pt has had a poor appetite this shift. Marquez cath draining cloudy, red urine w/ multiple clots noted d/t pulling at marquez repeatedly. Pt has been encouraged to cough t/o shift, pt remains very congested. No other acute changes or complaints will continue to monitor.
--- NOTE | 2021-01-16 23:40 | PC.NURSE ---
MD Peters notified of pt status. MD Wynn in room.
--- NOTE | 2021-01-17 00:13 | HMH.DEATH ---
Pronouncement Note - Date and Time of Date of : 01/16/21 Time of : 23:45 - PCOD Preliminary cause of : Acute respiratory failure - Additional Data Confirmation of : no pulse, no respirations, no heart sounds, pupils fixed and dilated Family: contacted Attending/PCP notified?: Yes Attending physician: Woo Peters MD Was code activated?: Yes Autopsy requested?: No health claims examiner notified?: No Organ bank notified?: Yes Advance directives: No
--- NOTE | 2021-01-17 00:14 | HMH.RR ---
Acute Rapid Response Note - Subjective Date Responded: 01/16/21 Time Responded: 23:30 Provider Note: code blue - no spont resp or pulse and asystolic on monitor - did not respnd to acls protocol and pronounced at 5895 - Objective Findings: Vital Signs - Last 4 Hours Temperature 97.7 F 01/16/21 20:00 Temperature Source Oral 01/16/21 20:00 Pulse Rate 104 H 01/16/21 20:00 Respiratory Rate 22 01/16/21 20:00 Blood Pressure 117/69 01/16/21 20:00 Blood Pressure Mean 85 01/16/21 20:00 Blood Pressure Source Automatic Cuff 01/16/21 20:00 Blood Pressure Position Supine 01/16/21 20:00 02 Sat by Pulse Oximetry 98 01/16/21 20:00 Oxygen Delivery Method 01/16/21 20:00 Oxygen Flow Rate (LPM) 2 01/16/21 19:29 Rapid Response Exam - General General appearance: alert, in no apparent distress - Head Head exam: atraumatic - Eye Eye exam: Present: other (fixed and dil) - ENT ENT exam: Present: other (intubated ) - Neck Neck exam: Present: trachea midline - Respiratory Respiratory exam: Present: other (no spont resp) - Cardiovascular Cardiovascular exam: Present: other (asystolic) - Abdominal Exam Abdominal exam: Present: soft - exam: Present: other (had marquez) - Extremities Exam Extremities exam: Present: pedal edema - Neurological Exam Neurological exam: Present: other (obtunded w/o posturing ) - Skin Skin exam: Absent: rash RR Procedures/Assess/Plan - Bedside Intubation Time Out Performed: No Sedative: none Laryngoscope: Wolfe Tube size: 7.5 Tube uncuffed: No Secured location: lips Placement confirmation: visualized tube passing through cords, equal breath sounds bilaterally, confirmation by capnometry Patient tolerated procedure intubation: no complications Intubation Complications: none - Assessment and plan all Dx Assessment and Plan for all problems:: pt did not respond to acls protocol and pronounced at 6964
--- NOTE | 2021-01-17 00:16 | PC.NURSE ---
Connie Ziegler notified of change in her 's condition. She begged to know the change and was informed of his . She stated she lives with her grand daughter and that she could bring her to the hospital. She stated she is on her way.
--- NOTE | 2021-01-17 00:32 | PC.NURSE ---
[id number] notified and ruled out for donation r/t age. Extractions Technologist: Katherine Wadsworth. Case # [id number].
[2021-01-17 00:47] LABS: POC Glucose,Bedside 200 (70-110)
[2021-01-17 00:47] LABS: POC Glucose,Bedside 198 (70-110)
[2021-01-17 00:47] LABS: POC Glucose,Bedside 189 (70-110)
--- NOTE | 2021-01-17 01:34 | PC.NURSE ---
Family came to hospital. Requested for pt to go to [facility]. [facility] notified.
--- NOTE | 2021-01-17 02:46 | PC.NURSE ---
Pt left via stretcher per [facility].
--- NOTE | 2021-01-17 04:02 | PC.NURSE ---
Late entry: 01/16/2021 2332 code blue called 2333 compressions started 233- pads applied, Dr. vo at the bedside 233- Pulse check, no pulse, asystole 2336- Epi given [id number] 233- Epi given 233- trial of intubation, Pt suctioned 233- compressions continued 234- epi given 234- no pulse asystole 2343- Pt intubated 7.[address], color change noted 2344- pulse check asystole 2344- epi given 2345 pulse check asystole 2345-Time of called by Dr. Vo
--- NOTE | 2021-01-21 14:25 | HMH.DCSUM ---
General - General Admission date:: 01/14/21 <Woo Peters - 03/25/21 13:28> 01/14/21 <GardunoPeace jerome - 01/21/21 15:13> Discharge date: 01/17/21 (pt ) <Peace Garduno - 01/21/21 15:13> HPI HPI: Mr. Barbosa is an 85-year-old male patient with a history of type 2 diabetes mellitus who had nausea and vomiting the week prior to presentation which resolved and then returned. His family with whom he lives noticed a change in mental status and thus they brought him to the emergency room. At the time of visit patient was alone in the ER awaiting a bed and was a very poor historian. Below is documentation from the emergency room.: Description of Symptoms (Recalled from ER Triage Doc. by RN): Honorio (GEE) states that pt had his Moderna booster on Friday. Nusratter advises that on Friday pt began vomiting and running a fever of 101.5 and yesterday he appeared to feel better. States that today he began vomiting again, O2 was low, temp was elevated, pt has been disoriented and having incontinent episodes, and glucose has been running at high levels. Granddaughter advises that pt lives with her and her family and that pt's 6 yr old bethanie farrar tested positive for COVID on Friday. HPI narrative: History obtained from patient and granddaughter who lives with the patient. He received a Moderna booster vaccine 4 days ago. 2 days after that began having fevers up to 101 degrees. Generalized body aches. Nausea and vomiting. Granddaughter says the thing he seems to complain of the most is his abdomen. He describes a generalized discomfort. Fever resolved and he was afebrile yesterday and today. Other symptoms have persisted however. Granddaughter called Dr. Mckinney who advised him to come to the emergency department if he began to get dehydrated or if his oxygen saturation was in the 80s or if his vomiting would not resolve. Patient's oxygen saturation dropped to the mid 80s today. He does not feel short of breath. He does not have any cough, other than his normal intermittent throat clearing hack. His daughter also states that he is disoriented today. He has urinary frequency and has had trouble making it to the bathroom in time. No diarrhea. He complains of a sore throat today. The patient sees Dr. Thompson as well as going to the [facility]. The above narrative is from [facility] ER. While residing in the emergency room patient pulled his IV out several times. He also was pulling at his catheter and was removed and then replaced due to urinary retention. At the time of exam patient denied chest pain, shortness of breath, abdominal pain, nausea and vomiting. He stated he had an accident and bowels have moved and he needed to be cleaned. In the emergency room he received IV fluids, aspirin, and Zofran. CT of the abdomen/pelvis showed a large amount of stool and possible mild gastritis. Chest x-ray showed a possible pneumonia: IMPRESSION: 1. The heart demonstrates mild diffuse enlargement. 2. Atelectasis and/or early infiltrative changes noted within both lung bases. . He was admitted for further evaluation and treatment and awaited in the emergency room for a bed assignment. Family prefered that he remain at [facility] for his care rather than going to the [place]. Peace Garduno had a conference call with Ronald Ramirez ,the granddaughter, and Connie Ziegler, his . They stated that he had a history of atrial fibrillation and was on Eliquis for this. He had also being diagnosed with prostate cancer and was told the cancer was a slow process and therefore he did not need treatment for this. He had a history of anemia as well and was taking iron on an irregular basis which caused constipation. He had CABG with three-vessel bypass. He was on Paxil for depression. Stomach krueger, he was noted to belch a lot but usually ate very well. As far as they know his bowels moved regularly and there had been no blood noted
== END 2021-01-16 23:45 | disposition expired | DRG 193 ==
LOC: ER 21:10 → 2ND 01-15 07:26
PROVIDERS: Admitting Provider Family Medicine; Emergency Provider Emergency Medicine; PCP Internal Medicine; Visit Provider Family Medicine
DX: J18.9 Pneumonia, unspecified organism (principal); J96.00 Acute respiratory failure, unspecified whether with hypoxia or hypercapnia; I42.9 Cardiomyopathy, unspecified; I48.20 Chronic atrial fibrillation, unspecified; Z20.822 Contact with and (suspected) exposure to COVID-19; C61 Malignant neoplasm of prostate; I25.10 Atherosclerotic heart disease of native coronary artery without angina pectoris; I50.9 Heart failure, unspecified; F32.9 Major depressive disorder, single episode, unspecified; E11.9 Type 2 diabetes mellitus without complications; Z79.4 Long term (current) use of insulin; Z79.01 Long term (current) use of anticoagulants; R77.8 Other specified abnormalities of plasma proteins; E86.0 Dehydration; N28.9 Disorder of kidney and ureter, unspecified; R31.0 Gross hematuria; Z95.1 Presence of aortocoronary bypass graft
CPT/HCPCS: 36415; 71045; 74177; 80048; 80053; 81001; 82947; 82962; 83605; 83690; 83880; 84484; 85007; 85025; 87040; 87086; 93005; 94640; 96365; 99285; J0456; J2405; Q9967; U0003